=== PATIENT | male | born 1945 | race Caucasian/White ===

== ENCOUNTER 2024-11-23 11:41 | Day surgery (SDC) | payer OTHER ==
[~2024-11-23] VITALS: Ht 177.8 cm; Wt 103.1 kg
[~2024-11-23 11:41] MED LIST: AMOCLA875 PO; ASPI325 PO; ATOR40TA PO; Balanced Salt Epinephrine Irrigation Solution 500 mL IR SCH; CETI5 PO; GEMFIBROZIL; Gemfibrozil600 MG PO; HYDR1TAB94 PO; LEVSOD50 PO; Lidocaine HCl/Pf 1% 5 ML VIAL XX SCH; Moxifloxacin HCL 0.5 MG/0.1 ML 0.4MLSYR RIGHTEYE SCH; PHENYLEPHRINE\\TROPICAMIDE\\TETRACAINE OPHTHALMIC DILATING SOLN RIGHTEYE PRN; Povidone-Iodine 450 DROP/30 ML Solution ONE; Povidone-Iodine 450 DROP/30 ML Solution RIGHTEYE SCH; RANI150 PO; RANITIDINE; THYROID; Tetracaine HCl/Pf 0.5% Opth Soln 4 ml ONE; VITAMIN D-32000 UNIT PO
[2024-11-23] MEDS ORDERED: Diazepam 5 MG Tab ONE (12:33)
[2024-11-23] MEDS ORDERED: Diazepam 2 MG Tab ONE (12:33)
[2024-11-23] MEDS ORDERED: TAMS.4ER PO (12:48)
--- NOTE | 2024-11-23 12:57 | NUR ---
11/23/24 Ivania Arroyo VALIUM 7MG GIVEN AT 1240 TETRACAINE AT 1242 PLEDGET AT 1243
[2024-11-23] MEDS ORDERED: Tetracaine HCl 0.5% Opth Soln 15 ml RIGHTEYE ONE (13:25)
[2024-11-23 13:57] VITALS: BP 161/93
== END 2024-11-23 14:10 | disposition home or self-care (01) ==
LOC: ORSCSDS 11:41
PROVIDERS: Student in an Organized Health Care Education/Training Program
PROC: 08RJ3JZ Replacement of Right Lens with Synthetic Substitute, Percutaneous Approach (ICD-10-PCS; principal; 2024-11-23 13:30)
DX: H25.811 Combined forms of age-related cataract, right eye (principal); H52.201 Unspecified astigmatism, right eye; Z96.1 Presence of intraocular lens; E03.9 Hypothyroidism, unspecified; K21.9 Gastro-esophageal reflux disease without esophagitis; E78.5 Hyperlipidemia, unspecified; E66.9 Obesity, unspecified; Z68.33 Body mass index [BMI] 33.0-33.9, adult; Z79.899 Other long term (current) drug therapy; Z79.82 Long term (current) use of aspirin
CPT/HCPCS: A9270; V2632